=== PATIENT | female | born 1995 | race Caucasian/White ===

== ENCOUNTER 2017-08-22 13:43 | Outpatient (CLI) | payer BC ==
[~2017-08-22 13:43] MED LIST: Gadobenate Dimeglumine 529 MG/1 ML (20ML VIAL) ONE
--- NOTE | 2017-08-22 16:30 | MRI ---
BRAIN MRI WITH AND WITHOUT CONTRAST: Comparison: 07-21-14 History: Endocrine abnormalities. History of pineal lesion resection. Technique: Multiplanar, multisequence MR imaging of the brain is provided with and without contrast. FINDINGS: The diffusion weighted imaging demonstrates no evidence for acute infarction. Axial gradient echo neno ging demonstrates no evidence for acute hemorrhage. There is an area of blooming artifact in the righ t frontal region, stable, likely related to prior shunt as there is a linear tract traversing the fro ntal lobe in this region extending to the region of the frontal horn of the right lateral ventricle. There is no midline shift or mass effect. There is no ventricular enlargement. There is mild cerebellar volume loss in the region of the vermis, stable. There is mild increased FLA IR signal in the vermis as well. There is evidence of prior midline occipital craniotomy. There is no abnormal enhancement within the brain parenchyma. Arterial flow voids at axial level of s kull base appear grossly unremarkable on the T2 weighted imaging. Paranasal sinuses/mastoid air cells well aerated. IMPRESSION: Stable brain MRI demonstrating post-surgical changes. No acute abnormality seen. POS: [facility]
== END 2017-08-22 13:44 | disposition home or self-care (01) ==
LOC: TBSIIMAG 13:43
PROVIDERS: ATTEND Neurological Surgery
DX: E34.8 Other specified endocrine disorders (principal); Z98.890 Other specified postprocedural states
CPT/HCPCS: 70553; A9579